=== PATIENT | female | born 1980 | race Caucasian/White ===

== ENCOUNTER 2021-04-04 19:00 | Emergency (ER) | payer OTHER ==
[~2021-04-04 19:00] MED LIST: DULERA 100 MCG8.8 GM INH; FEROSUL325 MG PO; IBUPROFEN800 MG PO; KEFLEX CAP 500500 MG PO; PERCOCET 10-321 EACH PO; VITAMIN C 500500 MG PO
[2021-04-04 21:59] LABS: HEMOGLOBIN 12.9 gm/dl (12.3-15.3); RED BLOOD COUNT 4.63 M/UL (4.00-5.10); WHITE BLOOD COUNT 7.7 K/UL (4.5-11.0)
[2021-04-04 22:23] LABS: BUN/CREATININE RATIO 20 (0-10)
== END 2021-04-05 00:05 | disposition home or self-care (01) ==
LOC: ER1 19:00
PROVIDERS: Physician Assistant Medical
DX: I10 Essential (primary) hypertension (principal); Z90.49 Acquired absence of other specified parts of digestive tract; Z79.899 Other long term (current) drug therapy
CPT/HCPCS: 70450; 80053; 81001; 84484; 85025; 93005; 99284